=== PATIENT | female | born 1965 | race Caucasian/White ===

== ENCOUNTER 2017-05-22 06:36 | Inpatient (IN) | payer OTHER ==
[~2017-05-22] VITALS: Ht 160 cm; Wt 83.0 kg
[~2017-05-22 06:36] MED LIST: AMIT150T PO; CLON0.5T PO; LEVO50TA4 PO; METO25TA3 PO; WELLTAB39 PO; ZALE10 PO
[2017-05-22] MEDS ORDERED: ACETAMINOPHEN 1000 MG/100 ML 100 ML IV ONE (06:53)
[2017-05-22] MEDS ORDERED: SUGAMMADEX SODIUM 200 MG/2 ML VIAL IV PUSH ONE ×2 (06:54)
[2017-05-22] MEDS ORDERED: HYDROmorphone HCL PF 2 MG/ML VIAL ONE (06:54)
[2017-05-22 07:30] LABS: PROTHROMBIN TIME - PATIENT 10.2 SEC (9.8-11.6)
[2017-05-22] MEDS ORDERED: ceFAZolin 2 GM PREMIX 50 ML IV SCH (07:30)
[2017-05-22] MEDS ORDERED: POVIDONE IODINE 5% (ANTISEPSIS KIT) 4 APPLICATIONS EACH NARE PRN (07:30)
[2017-05-22] MEDS ORDERED: INSULIN HUMAN REGULAR 1,000 UNITS/10 ML VIAL SQ PRN (07:30)
[2017-05-22] MEDS ORDERED: SODIUM CHLORID 0.9% 500 ML IV PRN (07:30)
[2017-05-22] MEDS ORDERED: CHLORHEXIDINE GLUCONATE 2 % 1 PACK (2 CLOTHS) TOPICAL PRN (07:30)
[2017-05-22] MEDS ORDERED: LACTATED RINGER'S 1000 ML IV PRN (07:30)
[2017-05-22] MEDS ORDERED: METOPROLOL TARTRATE 25 MG TAB PO PRN (07:30)
[2017-05-22] MEDS ORDERED: FAMOTIDINE 20 MG/2 ML VIAL ONE (07:54)
[2017-05-22 07:55] LABS: AUTOMATED NEUTROPHIL # 4.7 TH/MM3 (1.8-7.7); BASOPHIL # 0.1 TH/MM3 (0-0.2); EOSINOPHIL # 0.2 TH/MM3 (0-0.4); HEMATOCRIT 36.7 % (35.0-46.0); HEMO FLAGS DIFF FINAL; LYMPH % 31.7 % (9.0-44.0); LYMPHOCYTE # 2.5 TH/MM3 (1.0-4.8); MEAN CELL VOLUME 83.6 FL (80.0-100.0); MEAN CORPUSCULAR HEMOGLOBIN 27.8 PG (27.0-34.0); MEAN CORPUSCULAR HGB CONC 33.2 % (32.0-36.0); MONO % 6.7 % (0.0-8.0); NEUT % 58.6 % (16.0-70.0); PLATELET COUNT 318 TH/MM3 (150-450); RED BLOOD COUNT 4.39 MIL/MM3 (4.00-5.30); RED CELL DISTRIBUTION WIDTH 15.1 % (11.6-17.2); WHITE BLOOD COUNT 7.9 TH/MM3 (4.0-11.0)
[2017-05-22] MEDS ORDERED: FUROSEMIDE 40 MG/4 ML VIAL ONE (08:02)
[2017-05-22] MEDS ORDERED: MANNITOL INJ 0 ML ONE (08:02)
[2017-05-22] MEDS ORDERED: DEXMEDETOMIDINE HCL 200 MCG/2 ML VIAL ONE (08:14)
[2017-05-22 11:58] LABS: BLOOD GAS BASE EXCESS 0.5 mmol/L (-2-2); BLOOD GAS CARBOXYHEMOGLOBIN 0.9 % (0-4); BLOOD GAS HCO3 25 mmol/L (22-26); BLOOD GAS METHEMOGLOBIN 1.2 % (0-2); BLOOD GAS O2 HGB SATURATION 97 % (90-100); BLOOD GAS OXYGEN CONTENT 15.2 Vol % (12.0-20.0); BLOOD GAS PCO2 41 mmHg (38-42); BLOOD GAS PO2 207 mmHg (61-120); BLOOD GAS TOTAL HGB 10.8 G/DL (12.0-16.0); TEMP CORR TO 98.6
[2017-05-22 11:59] LABS: CRITICAL VALUE NO; STAT YES
[2017-05-22] MEDS ORDERED: DEXMEDETOMIDINE INJ 50 ML ONE (12:20)
[2017-05-22] MEDS: SODIUM CHLOR 0.9% 1000 ML INJ 1,000 ML IV SCH ×2 (12:45→21:34)
[2017-05-22] MEDS ORDERED: ONDANSETRON HCL 4 MG/2 ML VIAL IV PUSH PRN (12:45)
[2017-05-22] MEDS ORDERED: MORPHINE SULFATE 30 MG/30 ML PCA ONE (12:51)
[2017-05-22] MEDS ORDERED: DO NOT ADM ANY ANTICOAGULANT DRUGS PRN (13:00)
[2017-05-22] MEDS: PANTOPRAZOLE SODIUM 40 MG VIAL IV PUSH SCH (13:00)
[2017-05-22] MEDS ORDERED: ZOLPIDEM TARTRATE 10 MG TAB PO PRN (13:00)
[2017-05-22] MEDS: ACETAMINOPHEN 1000 MG/100 ML 100 ML IV SCH ×3 (13:00→23:59)
[2017-05-22] MEDS ORDERED: *morphine SULFATE 8 MG/ML PERIprocedure ONLY ONE ×2 (13:27→13:35)
[2017-05-22 13:30] LABS: AUTOMATED NEUTROPHIL # 12.7 TH/MM3 (1.8-7.7); BASOPHIL % 0.3 % (0.0-2.0); EOSINOPHIL % 0.3 % (0.0-4.0); HEMATOCRIT 32.7 % (35.0-46.0); HEMO FLAGS DIFF FINAL; LYMPH % 10.7 % (9.0-44.0); LYMPHOCYTE # 1.6 TH/MM3 (1.0-4.8); MEAN CELL VOLUME 83.8 FL (80.0-100.0); MEAN CORPUSCULAR HEMOGLOBIN 27.4 PG (27.0-34.0); MEAN CORPUSCULAR HGB CONC 32.8 % (32.0-36.0); MONO % 2.6 % (0.0-8.0); NEUT % 86.1 % (16.0-70.0); PLATELET COUNT 296 TH/MM3 (150-450); RED CELL DISTRIBUTION WIDTH 14.7 % (11.6-17.2); WHITE BLOOD COUNT 14.8 TH/MM3 (4.0-11.0)
[2017-05-22 13:57] LABS: BICARBONATE 27.4 MEQ/L (21.0-32.0); POTASSIUM 3.8 MEQ/L (3.5-5.1)
[2017-05-22] MEDS ORDERED: NALOXONE HCL 0.4 MG/ML AMP IV PUSH PRN (15:45)
[2017-05-22] MEDS ORDERED: MORPHINE SULFATE 30 MG/30 ML PCA IV SCH (15:45)
[2017-05-22 16:00] VITALS: BP 99/54; PULSE 75; RESP 18; TEMP 97.4; O2SAT 94
--- NOTE | 2017-05-22 17:54 | EKG ---
Date Performed: 05/22/2017 Time Performed: 07:23:31 PTAGE: 52 years EKG: Sinus rhythm NORMAL ECG NO PREVIOUS TRACING DOCTOR: Nabil Ceja Interpretating Date/Time 05/22/2017 17:53:33
[2017-05-22] MEDS ORDERED: DEXMEDETOMIDINE 200 MCG in NS 48 ML IV PRN (19:00)
[2017-05-22 20:00] VITALS: BP 113/66; PULSE 85; RESP 16; TEMP 96.7; O2SAT 94
[2017-05-22] MEDS: AMITRIPTYLINE HCL 75 MG TAB PO SCH (21:05)
[2017-05-22] MEDS: clonazePAM 0.5 MG TAB PO SCH (21:05)
[2017-05-22] MEDS: PCA - TOTAL MG MORPHINE DELIVERED PER SHIFT SCH (21:35)
--- NOTE | 2017-05-22 21:47 | MP ---
cc: PEDRO PEÑA MD DATE OF SURGERY 05/22/17 PREOPERATIVE DIAGNOSIS Right renal mass POSTOPERATIVE DIAGNOSIS Right renal mass PROCEDURE PERFORMED Right robotic radical nephrectomy. SURGEON Kory Peña MD ANESTHESIA General COMPLICATIONS None. PREOPERATIVE ANTIBIOTICS Ancef 2 grams IV DRAINS 6-Danish Nielsen catheter to gravity drainage. ESTIMATED BLOOD LOSS 300 mL SPECIMENS Right kidney for permanent DISPOSITION Stable to recovery INDICATIONS The patient is a 52-year-old female who was found to have an incidental right renal mass which appeared to be renal cell carcinoma. She was evaluated by an outside urologist for possible transitional cell carcinoma who did a cysto retrograde and ureteroscopy on her right kidney and did not see any evidence of tumor confirming the fact of likely a renal cell carcinoma. She was referred to my partner, Dr. Fields, who then referred her to me for laparoscopic removal of her right kidney. The patient had a previous left laparoscopic cholecystectomy approximately 15 years ago. After risks, benefits and alternatives were explained to patient including the risk of a renal failure, dialysis, conversion to open and injury to other abdominal organs, she elected to proceed. Informed consent was obtained. PROCEDURE IN DETAIL The patient was properly identified, brought back to the operating room, laid supine on the operating table. Proper time-out was performed under direction of anesthesiology. The patient was intubated and induced under general anesthetic. Preoperative antibiotics in the form of Ancef 2 grams IV given one hour prior to start of procedure. She was then placed in left lateral decubitus position with right side up with all pressure points padded. A Nielsen catheter was inserted prior to repositioning. At this time, a stab incision was made triangulated off of her xiphoid process, entered the twelfth rib. A Veress needle was then used to gain access to her abdominal cavity. Insufflation was then obtained. Under direct visualization, I then passed a 12 mm long camera port into abdominal cavity. I immediately noted adhesions to the anterior abdominal wall likely from her previous cholecystectomy. However, I had enough space to place the two 8-mm robotic ports as well as robotic ports under direct visualization. Due to the adhesions, I was unable to place a 5 port in the midline near the xiphoid process for liver retraction. I decided to place a 12 mm offset press assistant port inferior to the umbilicus in the midline. This was placed under direct visualization as well. At this time, all ports were in place. Robot was then brought into position. I began by taking down some of the anterior abdominal wall adhesions which helped free up the colon itself. However, there were still some significant adhesions superiorly along the midline. However, for now I did have a good visualization of the liver and potentially the retroperitoneum. I began by taking down the white line of Toldt and reflecting the colon medially to expose the retroperitoneum. I then continued to resect the colon off of the kidney superiorly. There was significant amount of adhesions of the liver to the kidney and the surrounding bowel. These was carefully dissected off with cold dissection and electrocautery. This did help free the liver up. I was then able to retract it anteriorly. However, there was still a significant of adhesions on the anterior abdominal wall which did not allow any port access superior to the umbilicus. At this time I very carefully bluntly dissected off the mesenteric attachments from the kidney. This exposed the duodenum. I was able to the duodenum and retract it medially which then opened up the IVC. Through careful dissection, I was able to identify the gonadal vein and ureter. This made a plane between the psoas muscle and the ureter and gonadal vein. I then retracted the kidney, ureter and gonadal vein anteriorly. I then marched superiorly up the psoas muscle with blunt dissection where I followed the attachment of the gonadal vein to the IVC. This was dissected out circumferentially and ligated with a robotic vessel sealer. There was also several smaller veins that were taken as well. The patient had a significant amount of perinephric fat which was quite inflamed and there was some general ooze throughout the case. However, I was able to continue to bluntly dissect posteriorly as I got closer to the hilum. However, I was having significant difficulty with exposure due to our placement of the offset press assistant port. I attempted to place a second offset press assistant port superior to the umbilicus, but could not gain access due to the adhesions. However, I decided that if I moved the second arm port more laterally that this would give a better access for the offset press assistant to potentially help with dissection and retraction. Therefore, I moved the left-hand right lower quadrant port more laterally. This port was placed under direct visualization. At this point, I was able to retract and help give space to my offset press assistant to help provide exposure with suction irrigation. At this time, I was able to carefully find the renal artery and vein. There was just one single artery and vein. The artery was carefully dissected out on its own. An endovascular stapler was then used to take the artery. The same stapler was then used to take the vein after dissecting out circumferentially. This helped to free up the kidney as well as. I then turned my attention to the superior attachments of the kidney and the liver. I carefully dissected the liver off of the right kidney until the kidney was completely free. The lateral attachments were then carefully dissected off as well. A stapler was then used to divide the ureter inferiorly. At this time, the kidney was completely mobilized. The renal hilum appeared to be dry. Insufflation was dropped down to 7 mmHg. There was minimal oozing seen. Hemostasis was achieved. Surgicel powder was then applied for hemostatic purposes to the renal hilum adrenal bed. EndoCatch bag was then inserted and the kidney was placed into an EndoCatch bag for later removal. I then extracted the kidney through the right lower quadrant incision. This was closed with a running 1-0 PDS. A second look was performed. The renal fossa appeared to be dry. No evidence of any bleeding. The underside of the and closure incision was clear of the bowel. At this time, all ports were then removed under direct visualization. They were closed with a 4-0 Monocryl. The patient was then extubated, sent to recovery in stable condition without immediate complications. She will be transferred to the floor for routine postoperative care. Sponge, instrument, needle count was correct at the end of the case. MD LEONARDO Johnston/ /5:13 PM /9:23 PM
[2017-05-23] VITALS (8 sets, daily range): BP systolic 92–138; BP diastolic 52–65; PULSE 75–81; RESP 16–20; TEMP 96.4–97.6; O2SAT 94–99
[2017-05-23] MEDS: SODIUM CHLOR 0.9% 1000 ML INJ 1,000 ML IV SCH ×3 (05:39→20:45)
[2017-05-23] MEDS: PCA - TOTAL MG MORPHINE DELIVERED PER SHIFT SCH (05:41)
[2017-05-23] MEDS: ACETAMINOPHEN 1000 MG/100 ML 100 ML IV SCH ×2 (06:40→12:57)
[2017-05-23] MEDS: LEVOTHYROXINE SODIUM 50 MCG TAB PO SCH (08:35)
[2017-05-23] MEDS: METOPROLOL TARTRATE 25 MG TAB PO SCH (09:00)
[2017-05-23] MEDS: buPROPion HCL 150 MG SUSTAINED RELEASE TAB PO SCH ×2 (09:12→20:45)
[2017-05-23] MEDS: clonazePAM 0.5 MG TAB PO SCH ×2 (09:13→20:45)
[2017-05-23 11:49] LABS: HEMATOCRIT 29.1 % (35.0-46.0); MEAN CELL VOLUME 85.4 FL (80.0-100.0); MEAN CORPUSCULAR HEMOGLOBIN 28.4 PG (27.0-34.0); MEAN CORPUSCULAR HGB CONC 33.2 % (32.0-36.0); PLATELET COUNT 230 TH/MM3 (150-450); RED CELL DISTRIBUTION WIDTH 15.2 % (11.6-17.2); REVIEW FLAG FINAL; WHITE BLOOD COUNT 8.7 TH/MM3 (4.0-11.0)
[2017-05-23 12:54] LABS: BICARBONATE 24.2 MEQ/L (21.0-32.0)
[2017-05-23] MEDS: PANTOPRAZOLE SODIUM 40 MG VIAL IV PUSH SCH (12:58)
[2017-05-23] MEDS ORDERED: MORPHINE SULFATE 4 MG/ML INJ IV PUSH PRN (13:00)
[2017-05-23] MEDS ORDERED: oxyCODONE/ACETAMINOPHEN 5 MG/325 MG TAB PO PRN (13:00)
[2017-05-23] MEDS: oxyCODONE/ACETAMINOPHEN 5 MG/325 MG TAB PO PRN ×3 (14:54→23:03)
--- NOTE | 2017-05-23 16:59 | HHI.PR ---
Subjective Patient symptoms today pain controlled with RESIDENTIAL PEST CONTROL TECHNICIAN. tolerating clears. ambulating. Denies nausea, vomiting , flatus, chest pain or SOB. Has appetite. voiding on own. Objective Vital Signs Vital Signs Date Time Temp Pulse Resp B/P (MAP) Pulse Ox O2 Delivery O2 Flow Rate FiO2 05/23/17 16:00 96.7 81 17 105/61 (76) 99 05/23/17 15:54 18 05/23/17 12:00 96.4 75 17 98/58 (71) 98 05/23/17 10:54 97 Nasal Cannula 3.00 05/23/17 08:00 96.5 77 16 103/52 (69) 97 05/23/17 07:10 18 05/23/17 00:03 96 Nasal Cannula 3.00 05/23/17 00:00 97.0 76 16 92/54 (67) 94 05/22/17 20:00 96.7 85 16 113/66 (82) 94 Intake & Output 05/23/17 05/23/17 07:00 19:00 Intake Total 2200 ml Balance 2200 ml Intake IV Total 2200 ml Result Diagram: 05/23/17 1048 05/23/17 1048 Objective Remarks NAD. A/O x 3 RRR non-labored respirations abd soft, NT, non-distended. inc c/d/i Ext NT. No c/c/e Medications and IVs Current Medications Medications (Trade) Dose Ordered Sig/Gui Route Start Time Stop Time Status Last Admin Lactated Ringer's 1,000 ml @ 30 mls/hr Q24H PRN IV 05/22/17 07:30 05/25/17 07:29 05/22/17 07:10 Sodium Chloride 500 ml @ 30 mls/hr [id number] PRN IV 05/22/17 07:30 05/25/17 07:29 (Lopressor) 25 mg JAVA SECURITY ENGINEER PRN PO 05/22/17 07:30 05/25/17 07:29 (Betadine 5% Antisepsis Kit) 1 applic JAVA SECURITY ENGINEER PRN EACH NARE 05/22/17 07:30 05/25/17 07:29 05/22/17 07:15 (Chlorhexidine 2% Cloth) 3 pack JAVA SECURITY ENGINEER PRN TOPICAL 05/22/17 07:30 05/25/17 07:29 05/22/17 06:50 (NovoLIN R INJ) See Protocol Table ... JAVA SECURITY ENGINEER PRN SQ 05/22/17 07:30 05/25/17 07:29 Cefazolin Sodium/ Dextrose 50 ml @ 150 mls/hr JAVA SECURITY ENGINEER IV 05/22/17 07:30 05/25/17 07:29 05/22/17 09:00 Sodium Chloride 1,000 ml @ 125 mls/hr Q8H IV 05/22/17 12:45 05/23/17 05:39 (Zofran Inj) 4 mg Q6HR PRN IV PUSH 05/22/17 12:45 (Protonix Inj) 40 mg Q24H IV PUSH 05/22/17 13:00 05/23/17 12:58 (Elavil) 150 mg HS PO 05/22/17 21:00 05/22/17 21:05 (Wellbutrin Sr) 150 mg BID PO 05/23/17 09:00 05/23/17 09:12 (KlonoPIN) 0.5 mg BID PO 05/22/17 21:00 05/23/17 09:13 (Synthroid) 50 mcg DAILY PO 05/23/17 09:00 05/23/17 08:35 (Lopressor) 25 mg DAILY PO 05/23/17 09:00 (Ambien) 10 mg HS PRN PO 05/22/17 13:00 (Percocet 5-325 Mg) 2 tab Q4H PRN PO 05/23/17 13:00 05/23/17 14:54 (Percocet 5-325 Mg) 1 tab Q4H PRN PO 05/23/17 13:00 (Colace) 100 mg BID PO 05/23/17 21:00 (Morphine Inj) 4 mg Q3H PRN IV PUSH 05/23/17 13:00 Assessment and Plan Assessment and Plan POD #1 s/p Right Robotic Radical Nephrectomy, Lysis of Adhesions -Advance diet -d/c IVF -Hgb stable. Good UOP -d/c RESIDENTIAL PEST CONTROL TECHNICIAN -Ambulate, IS. Mumtaz Peña MD May 23, 2017 16:59
[2017-05-23] MEDS: DOCUSATE SODIUM 100 MG CAP PO SCH (20:45)
[2017-05-23] MEDS: AMITRIPTYLINE HCL 75 MG TAB PO SCH (20:45)
[2017-05-24 00:24] VITALS: BP 105/51; PULSE 82; RESP 20; TEMP 97.7; O2SAT 96
[2017-05-24] MEDS: oxyCODONE/ACETAMINOPHEN 5 MG/325 MG TAB PO PRN ×3 (03:53→12:24)
[2017-05-24] MEDS: SODIUM CHLOR 0.9% 1000 ML INJ 1,000 ML IV SCH (03:54)
[2017-05-24 08:00] VITALS: BP 114/63; PULSE 86; RESP 17; TEMP 97.4; O2SAT 97
[2017-05-24] MEDS: LEVOTHYROXINE SODIUM 50 MCG TAB PO SCH (08:28)
[2017-05-24] MEDS: buPROPion HCL 150 MG SUSTAINED RELEASE TAB PO SCH (08:28)
[2017-05-24] MEDS: METOPROLOL TARTRATE 25 MG TAB PO SCH (08:29)
[2017-05-24] MEDS: DOCUSATE SODIUM 100 MG CAP PO SCH (08:29)
[2017-05-24] MEDS: clonazePAM 0.5 MG TAB PO SCH (08:29)
[2017-05-24 09:16] VITALS: O2SAT 96
[2017-05-24 12:00] VITALS: BP 113/55; PULSE 74; RESP 17; TEMP 97.1; O2SAT 95
[2017-05-24] MEDS: PANTOPRAZOLE SODIUM 40 MG VIAL IV PUSH SCH (12:24)
[2017-05-24] MEDS ORDERED: DOCU1CAP39 PO (14:29)
[2017-05-24] MEDS ORDERED: OXYC1TAB63 PO (14:29)
--- NOTE | 2017-05-24 14:31 | HHI.PR ---
Subjective Patient symptoms today pain controlled. tolerating regular diet. ambulating. passing flatus. Denies CP/ SOB. Ready to go home. Objective Vital Signs Vital Signs Date Time Temp Pulse Resp B/P (MAP) Pulse Ox O2 Delivery O2 Flow Rate FiO2 05/24/17 12:00 97.1 74 17 113/55 (74) 95 05/24/17 08:00 97.4 86 17 114/63 (80) 97 05/24/17 05:46 18 05/24/17 00:24 97.7 82 20 105/51 (69) 96 05/23/17 20:24 97.6 80 20 138/65 (89) 96 05/23/17 18:05 99 Nasal Cannula 3.00 05/23/17 16:00 96.7 81 17 105/61 (76) 99 Intake & Output 05/24/17 05/24/17 07:00 19:00 Intake Total 780 ml Output Total 1400 ml Balance -620 ml Intake Oral 780 ml Output Urine Total 1400 ml Result Diagram: 05/23/17 1048 05/23/17 1048 Objective Remarks NAD. A/O x 3 RRR non-labored respirations abd soft, NT, non-distended. inc c/d/i Ext NT. No c/c/e Medications and IVs Current Medications Medications (Trade) Dose Ordered Sig/Gui Route Start Time Stop Time Status Last Admin Lactated Ringer's 1,000 ml @ 30 mls/hr Q24H PRN IV 05/22/17 07:30 05/25/17 07:29 05/22/17 07:10 Sodium Chloride 500 ml @ 30 mls/hr [id number] PRN IV 05/22/17 07:30 05/25/17 07:29 (Lopressor) 25 mg COMPOUND FINISHER PRN PO 05/22/17 07:30 05/25/17 07:29 (Betadine 5% Antisepsis Kit) 1 applic COMPOUND FINISHER PRN EACH NARE 05/22/17 07:30 05/25/17 07:29 05/22/17 07:15 (Chlorhexidine 2% Cloth) 3 pack COMPOUND FINISHER PRN TOPICAL 05/22/17 07:30 05/25/17 07:29 05/22/17 06:50 (NovoLIN R INJ) See Protocol Table ... COMPOUND FINISHER PRN SQ 05/22/17 07:30 05/25/17 07:29 Cefazolin Sodium/ Dextrose 50 ml @ 150 mls/hr COMPOUND FINISHER IV 05/22/17 07:30 05/25/17 07:29 05/22/17 09:00 (Zofran Inj) 4 mg Q6HR PRN IV PUSH 05/22/17 12:45 (Elavil) 150 mg HS PO 05/22/17 21:00 05/23/17 20:45 (Wellbutrin Sr) 150 mg BID PO 05/23/17 09:00 05/24/17 08:28 (KlonoPIN) 0.5 mg BID PO 05/22/17 21:00 05/24/17 08:29 (Synthroid) 50 mcg DAILY PO 05/23/17 09:00 05/24/17 08:28 (Lopressor) 25 mg DAILY PO 05/23/17 09:00 05/24/17 08:29 (Ambien) 10 mg HS PRN PO 05/22/17 13:00 (Percocet 5-325 Mg) 2 tab Q4H PRN PO 05/23/17 13:00 05/24/17 12:24 (Percocet 5-325 Mg) 1 tab Q4H PRN PO 05/23/17 13:00 (Colace) 100 mg BID PO 05/23/17 21:00 05/24/17 08:29 (Morphine Inj) 4 mg Q3H PRN IV PUSH 05/23/17 13:00 (Protonix) 40 mg Q24H PO 05/25/17 12:00 Assessment and Plan Assessment and Plan POD #2 s/p Right Robotic Radical Nephrectomy, Lysis of Adhesions -Doing well -pain controlled -d/c home today. f/u in 1 week. Mumtaz Peña MD May 24, 2017 14:31
--- NOTE | 2017-05-24 14:33 | HHI.DS ---
Discharge Summary Admission Date May 22, 2017 at 06:36 Discharge Date: May 24, 2017 Admitting Diagnosis Right Renal Mass Procedures Right Robotic Radical Nephrectomy CBC/BMP: 05/23/17 1048 05/23/17 1048 Significant Findings Laboratory Tests Test 05/22/17 07:10 05/22/17 11:40 05/22/17 13:07 05/23/17 10:48 Arterial Blood Partial Pressure O2 207 mmHg (61-120) Blood Gas Hemoglobin 10.8 G/DL (12.0-16.0) White Blood Count 14.8 TH/MM3 (4.0-11.0) Red Blood Count 3.90 MIL/MM3 (4.00-5.30) 3.40 MIL/MM3 (4.00-5.30) Hemoglobin 10.7 GM/DL (11.6-15.3) 9.7 GM/DL (11.6-15.3) Hematocrit 32.7 % (35.0-46.0) 29.1 % (35.0-46.0) Neutrophils (%) (Auto) 86.1 % (16.0-70.0) Neutrophils # (Auto) 12.7 TH/MM3 (1.8-7.7) Random Glucose 168 MG/DL (74-106) Calcium Level 7.7 MG/DL (8.5-10.1) 7.5 MG/DL (8.5-10.1) Estimat Glomerular Filtration Rate 62 ML/MIN (>89) 49 ML/MIN (>89) Creatinine 1.16 MG/DL (0.50-1.00) Chloride Level 109 MEQ/L (98-107) Hospital Course 52 yo female admitted following Right Robotic Radical Nephrectomy. Her hospital course was uncomplicated. Catheter and FAN BALANCER were removed POD#1. Diet was advanced. She progressed well. On POD#2, she was passing flatus, ambulating in hallways. She was discharged home. Pt Condition on Discharge: Good Discharge Disposition: Discharge Home Discharge Instructions DIET: Follow Instructions for: Heart Healthy Diet Activities you can perform: Full Weight Bearing, Shower Only-No Bath Activities to avoid: Strenuous Activity Additional Activity Instructio: No heavy lifitng greater than 15 lbs x 2 weeks No driving x 2 weeks New Medications: Docusate Sodium (Dok) 100 Mg Cap 100 MG PO BID for Constipation for 14 Days, #28 CAP Oxycodone HCl/Acetaminophen (Oxycodone-Acetaminophen 5-325) 5 Mg-325 Mg Tablet 2 TAB PO Q4H PRN for PAIN SCALE 7 TO 10 for 7 Days, #84 TAB Continued Medications: Amitriptyline (Amitriptyline) 150 Mg Tab 150 MG PO HS for Control Depression, #30 TAB 0 Refills Bupropion HCl ER 24 HR (Wellbutrin Xl 24 HR) 300 Mg Tab 300 MG PO DAILY for Control Depression, TAB 0 Refills Clonazepam (Clonazepam) 0.5 Mg Tab 0.5 MG PO BID, #60 TAB 0 Refills Levothyroxine (Levothyroxine) 50 Mcg Tab 50 MCG PO DAILY for Thyroid, #30 TAB 0 Refills Metoprolol Tartrate (Metoprolol Tartrate) 25 Mg Tab 25 MG PO DAILY, #30 TAB 0 Refills Zaleplon (Sonata) 10 Mg Cap 10 MG PO HS PRN for INSOMNIA, CAP 0 Refills Mumtaz Peña MD May 24, 2017 14:33
[2017-05-24 17:39] VITALS: O2SAT 95
[2017-05-25] MEDS ORDERED: PANTOPRAZOLE SOD 40 MG DELAYED RELEASE TAB PO SCH (12:00)
== END 2017-05-24 19:09 | disposition home or self-care (01) | DRG 658 ==
LOC: HSDI 06:36 → N07B 14:38
PROVIDERS: ADMIT Urology; ATTEND Urology
PROC: 0DNW4ZZ Release Peritoneum, Percutaneous Endoscopic Approach (ICD-10-PCS; 2017-05-22)
PROC: 0TT04ZZ Resection of Right Kidney, Percutaneous Endoscopic Approach (ICD-10-PCS; principal; 2017-05-22 08:36)
DX: C64.1 Malignant neoplasm of right kidney, except renal pelvis (principal); E66.9 Obesity, unspecified; I10 Essential (primary) hypertension; K66.0 Peritoneal adhesions (postprocedural) (postinfection); F32.9 Major depressive disorder, single episode, unspecified; F41.9 Anxiety disorder, unspecified; Z68.32 Body mass index [BMI] 32.0-32.9, adult; Z86.718 Personal history of other venous thrombosis and embolism; Z87.891 Personal history of nicotine dependence
CPT/HCPCS: 80048; 82805; 85025; 85027; 85610; 86850; 86900; 86901; 86920; 88307; 93005; C9113; C9399; J0131; J0690; J1170; J1940; J2150; J2270; J7030; J7120